=== PATIENT | male | born 1995 | race Caucasian/White ===

== ENCOUNTER 2018-08-09 01:04 | Emergency (ER) | payer BC ==
[~2018-08-09] VITALS: Ht 177.8 cm; Wt 68.0 kg
[2018-08-09] MEDS ORDERED: CEFTRIAXONE 250 MG ONE (01:27)
[2018-08-09] MEDS ORDERED: AZITHROMYCIN 250 MG TABLET ONE (01:27)
[2018-08-09 01:30] LABS: MICROSCOPIC NOT IND
[2018-08-09] MEDS ORDERED: CEFTRIAXONE 250 MG IM ONE (01:30)
[2018-08-09] MEDS ORDERED: AZITHROMYCIN 250 MG TABLET PO ONE (01:30)
[2018-08-09 01:39] LABS: CULTURE INDICATED? NO
[2018-08-09 03:50] VITALS: BP 143/70
== END 2018-08-09 03:52 | disposition home or self-care (01) ==
LOC: ED 01:51
DX: N50.811 Right testicular pain (principal)
CPT/HCPCS: 76870; 81003; 87491; 87591; 96372; 99285; J0696